=== PATIENT | female | born 1995 | race Two or more races ===

== ENCOUNTER 2016-06-14 04:52 | Emergency (ER) ==
[2016-06-14 05:09] VITALS: BP 103/64; TEMP 98.7; BMI 42.5
[2016-06-14] MEDS ORDERED: BENADRYL IM STA (05:20)
[2016-06-14] MEDS ORDERED: DECADRON 4 MG/ML SDV IM STA (05:20)
--- NOTE | 2016-06-14 05:24 | ED.PDOC ---
General ED Provider: Dr. HUGO ESCALANTE Chief Complaint: Rash Stated Complaint: Been itching and scratching all over, had similar problem before, does not know how it started. Time Seen by Physician: 05:21 Mode of Arrival: Walk-In Information Source: Patient Nursing and Triage Documentation Reviewed and Agree: Yes Skin Complaint Exam - Skin Rash/Itching Complaint/Exam Symptoms Are: Still present Initial Severity: Moderate Current Severity: Moderate Potential Exposures: Reports: Unknown Aggravating: Reports: None Alleviating: Reports: None Associated Signs and Symptoms: Denies: Difficulty breathing, Fever, Chills Related History: Similar episode Skin Findings: Present: Urticaria Differential Diagnoses: Allergic Reaction, Contact Dermatitis Review of Systems - Review Of Systems Constitutional: Reports: No symptoms Eyes: Reports: No symptoms Ears, Nose, Mouth, Throat: Reports: No symptoms Respiratory: Reports: No symptoms Cardiac: Reports: No symptoms GI: Reports: No symptoms : Reports: No symptoms Musculoskeletal: Reports: No symptoms Skin: Reports: Rash Neurological: Reports: No symptoms Endocrine: Reports: No symptoms Hematologic/Lymphatic: Reports: No symptoms All Other Systems: Reviewed and Negative Past Medical History - Past Medical History Previously Healthy: Yes Endocrine: Reports: None Cardiovascular: Reports: None Respiratory: Reports: None Hematological: Reports: None Gastrointestinal: Reports: None Genitourinary: Reports: None Neuro/Psych: Reports: None Musculoskeletal: Reports: None Cancer: Reports: None Last Menstrual Period: 2 weeks ago - Surgical History General Surgical History: Reports: None - Family History Family History: Reports: None - Social History Smoking Status: Current some day smoker, Light tobacco smoker Smoking Cessation Counseling Time: > 3 min - 10 min Hx Substance Use: No Alcohol Screening: Occasionally - Immunizations Tetanus Shot up to Date: No Physical Exam - Physical Exam Appearance: Well-appearing, Obese Eyes: CARLOS, EOMI, Conjunctiva clear ENT: Ears normal, Nose normal, Oropharynx normal Respiratory: Airway patent, Breath sounds clear, Breath sounds equal, Respirations nonlabored Cardiovascular: RRR, Pulses normal, No rub, No murmur GI/: Soft, Nontender, No masses, Bowel sounds normal, No Organomegaly Musculoskeletal: Normal strength, ROM intact, No edema, No calf tenderness Skin: Warm, Dry, Normal color Neurological: Sensation intact, Motor intact, Reflexes intact, Cranial nerves intact, Alert, Oriented Psychiatric: Affect appropriate, Mood appropriate Critical Care Note - Critical Care Note Total Time (mins): 0 Course - Course Orders, Labs, Meds: Orders Category Date Time Status Dexamethasone 4 mg/ml Inj [Decadron 4 mg/ml Sdv] MEDS 06/14/16 05:20 Stat 4 mg IM ONCE STA Diphenhydramine Inj [Benadryl] MEDS 06/14/16 05:20 Stat 50 mg IM ONCE STA Medications Discontinued Medications Generic Name Dose Route Start Last Admin Trade Name Estefania PRN Reason Stop Dose Admin Dexamethasone Sodium Phosphate 4 mg 06/14/16 05:20 Decadron 4 Mg/Ml Sdv IM 06/14/16 05:21 ONCE STA Diphenhydramine HCl 50 mg 06/14/16 05:20 Benadryl IM 06/14/16 05:21 ONCE STA Vital Signs: Temp Pulse Resp BP Pulse Ox 06/14/16 04:58 98.7 F 121 H 20 103/64 98 Departure - Departure Time of Disposition: 05:25 Disposition: HOME SELF-CARE Discharge Problem: Pruritic rash Instructions: Contact Dermatitis (ED) Condition: Stable Pt referred to PMD for follow-up: Yes Additional Instructions: Increase hydration monitor for the allergens. If not better come back Prescriptions: Diphenhydramine HCl [Benadryl] 25 mg PO Q6H #14 capsule Methylprednisolone [Medrol Dosepak] 4 mg PO DIRECTED #1 pkg Allergies/Adverse Reactions: Allergies No Known Allergies Allergy (Unverified 06/14/16 05:07) Home Medications: Ambulatory Orders Diphenhydramine HCl [Benadryl] 25 mg PO Q6H #14 capsule 06/14/16 Methylprednisolone [Medrol Dosepak] 4 mg PO DIRECTED #1 pkg 06/14/16 Disposition Discussed With: Patient
== END 2016-06-14 06:01 | disposition home or self-care (01) ==
LOC: ED 04:52
DX: R21 Rash and other nonspecific skin eruption (principal); L29.9 Pruritus, unspecified; F17.210 Nicotine dependence, cigarettes, uncomplicated
CPT/HCPCS: 96372; 99282

== ENCOUNTER 2016-06-14 22:57 | Emergency (ER) ==
[2016-06-14 23:10] VITALS: BP 120/80; TEMP 97.8; BMI 41.1
[2016-06-14] MEDS ORDERED: BENADRYL IVP STA (23:20)
[2016-06-14] MEDS ORDERED: SOLU-MEDROL 125 MG IVP STA (23:20)
[2016-06-14] MEDS ORDERED: SODIUM CHLORIDE 1,000 ML IV STA (23:20)
[2016-06-14] MEDS ORDERED: PEPCID IVP STA (23:20)
[2016-06-14] MEDS ORDERED: ALLEGRA PO STA (23:21)
[2016-06-14 23:32] LABS: BASOPHILS % (AUTO) 0.1 % (0.0-3.0); HEMATOCRIT 41.1 % (37.0-47.0); HEMOGLOBIN 14.5 g/dl (12.0-16.0); IMMATURE GRANULOCYTE % (AUTO) 0.4 % (0.0-5.0); LYMPHOCYTES # (AUTO) 1.4 K/uL (0.60-3.4); MEAN CORPUSCULAR HEMOGLOBIN 27.9 pg (27.0-31.0); MEAN CORPUSCULAR HGB CONC 35.3 (31.8-35.4); MONOCYTES # (AUTO) 0.5 K/uL (0.4-2.0); MONOCYTES % (AUTO) 1.9 (0-10); NEUTROPHILS # (AUTO) 21.7 K/ul (2.0-6.9); NEUTROPHILS % (AUTO) 91.6; PLATELET COUNT 380 10^3/uL (140-440); WHITE BLOOD COUNT 23.66 K/ul (4.6-10.2)
[2016-06-14 23:42] LABS: SERUM PREGNANCY INTERNAL QC INTERNAL QC VALID
[2016-06-14 23:51] LABS: ALBUMIN 3.6 g/dL (3.4-5.0); ALBUMIN/GLOBULIN RATIO 1.29; ANION GAP 11.9; BILIRUBIN,TOTAL 0.24 mg/dL (0.00-1.20); BUN/CREATININE RATIO 10.81; CALCIUM 9.1 mg/dL (8.2-10.2); CREATININE 0.74 mg/dL (0.60-1.30); POTASSIUM 3.9 mmol/L (3.5-5.10); TOTAL PROTEIN 6.4 g/dL (6.4-8.2)
[2016-06-15 00:05] LABS: ERYTHROCYTE SEDIMENTATION RATE 8 mm/hr (0-20); ESR INTERNAL QC INTERNAL QC VALID
--- NOTE | 2016-06-15 00:28 | ED.PDOC ---
General ED Provider: Dr. JEREMIAH HANSEN-ER Chief Complaint: Rash Stated Complaint: im covered in a rash andits itchy Time Seen by Physician: 23:05 Mode of Arrival: Walk-In Information Source: Patient Exam Limitations: No limitations Nursing and Triage Documentation Reviewed and Agree: Yes Skin Complaint Exam - Skin Rash/Itching Complaint/Exam Onset/Duration: 2 days Symptoms Are: Still present Initial Severity: Moderate Current Severity: Moderate Location: all over Potential Exposures: Reports: Unknown Aggravating: Reports: None Alleviating: Reports: None Associated Signs and Symptoms: Denies: Difficulty breathing, Fever, Chills Related History: Similar episode Skin Findings: Present: Urticaria Differential Diagnoses: Allergic Reaction Review of Systems - Review Of Systems Constitutional: Reports: No symptoms Eyes: Reports: No symptoms Ears, Nose, Mouth, Throat: Reports: No symptoms Respiratory: Reports: No symptoms Cardiac: Reports: No symptoms GI: Reports: No symptoms : Reports: No symptoms Musculoskeletal: Reports: No symptoms Skin: Reports: Rash Neurological: Reports: No symptoms Endocrine: Reports: No symptoms Hematologic/Lymphatic: Reports: No symptoms All Other Systems: Reviewed and Negative Past Medical History - Past Medical History Previously Healthy: Yes Endocrine: Reports: None Cardiovascular: Reports: None Respiratory: Reports: None Hematological: Reports: None Gastrointestinal: Reports: None Genitourinary: Reports: None Neuro/Psych: Reports: None Musculoskeletal: Reports: None Cancer: Reports: None Last Menstrual Period: 2 weeks ago - Surgical History General Surgical History: Reports: None - Family History Family History: Reports: None - Social History Smoking Status: Current some day smoker, Light tobacco smoker Hx Substance Use: No Alcohol Screening: Occasionally Lives: With family - Immunizations Tetanus Shot up to Date: Yes Physical Exam - Physical Exam Appearance: Well-appearing, No pain distress, Well-nourished Eyes: CARLOS, EOMI, Conjunctiva clear ENT: Ears normal, Nose normal, Oropharynx normal Neck: Supple Respiratory: Airway patent, Breath sounds clear, Breath sounds equal, Respirations nonlabored Cardiovascular: RRR, Pulses normal, No rub, No murmur GI/: Soft, Nontender, No masses, Bowel sounds normal, No Organomegaly Musculoskeletal: Normal strength, ROM intact, No edema, No calf tenderness Skin: Warm (noted urticarial rash from head to toe) Neurological: Sensation intact, Motor intact, Reflexes intact, Cranial nerves intact, Alert, Oriented Psychiatric: Affect appropriate, Mood appropriate Re-Evaluation - Re-Evaluation Time of Re-Evaluation: 00:27 Status: Improved (rash has completely resolved) Vital Signs Stable: Yes Pain Level: 0 Appearance: NAD Lungs: Clear Skin: Warm and Dry Neuro: Alert and Oriented X3 CV: RRR Critical Care Note - Critical Care Note Total Time (mins): 0 Course - Course Hematology/Chemistry: 06/14/16 23:31 06/14/16 23:31 Orders, Labs, Meds: Lab Review 06/14/16 23:31 WBC 23.66 H RBC 5.20 Hgb 14.5 Hct 41.1 MCV 79.0 L MCH 27.9 MCHC 35.3 RDW Coeff of Chris 13.4 Plt Count 380 Immature Gran % (Auto) 0.4 Neut % (Auto) 91.6 Lymph % (Auto) 6.0 L [place] % (Auto) 1.9 Eos % (Auto) 0.0 Baso % (Auto) 0.1 Immature Gran # (Auto) 0.1 Neut # 21.7 H Lymph # 1.4 [place] # 0.5 Eos # 0.0 Baso # 0.0 ESR 8 Sodium 135 L Potassium 3.9 Chloride 103 Carbon Dioxide 24 Anion Gap 11.9 BUN 8 Creatinine 0.74 Estimated GFR (MDRD) 99.00 BUN/Creatinine Ratio 10.81 Glucose 143 H Calcium 9.1 Total Bilirubin 0.24 AST 15 ALT 23 Alkaline Phosphatase 63 Total Protein 6.4 Albumin 3.6 Globulin 2.8 Albumin/Globulin Ratio 1.29 Serum , Qual Negative Orders Category Date Time Status ED IV/MEDIPORT/POWERPORT .ONCE EMERGENCY 06/14/16 23:20 Active CBC W/ AUTO DIFF Stat LAB 06/14/16 23:31 Completed COMPREHENSIVE METABOLIC PANEL Stat LAB 06/14/16 23:31 Completed ESR Stat LAB 06/14/16 23:31 Completed SERUM Stat LAB 06/14/16 23:31 Completed 0.9 % Sodium Chloride [Saline Flush] MEDS 06/14/16 23:20 Ordered 1 syr IVF PRN PRN Diphenhydramine Inj [Benadryl] MEDS 06/14/16 23:20 Discontinued 50 mg IVP ONCE STA Famotidine Inj [Pepcid] MEDS 06/14/16 23:20 Discontinued 40 mg IVP ONCE STA Fexofenadine HCl [Angie] MEDS 06/14/16 23:21 Discontinued 180 mg PO ONCE STA Methylprednisolone Sod Succ/Pf [Solu-Medrol 125 mg] MEDS 06/14/16 23:20 Discontinued 125 mg IVP ONCE STA Sodium Chloride 0.9% [Sodium Chloride] 1,000 ml MEDS 06/14/16 23:20 Active IV 100 mls/hr Medications Generic Name Dose Route Start Last Admin Trade Name Freq PRN Reason Stop Dose Admin Sodium Chloride 1,000 mls @ 100 mls/hr 06/14/16 23:20 06/14/16 23:33 Sodium Chloride IV 06/15/16 09:19 100 mls/hr .Q10H STA Administration Sodium Chloride 1 syr 06/14/16 23:20 06/15/16 00:02 Saline Flush IVF 1 syr PRN PRN Administration To flush IV Discontinued Medications Generic Name Dose Route Start Last Admin Trade Name Freq PRN Reason Stop Dose Admin Diphenhydramine HCl 50 mg 06/14/16 23:20 06/15/16 00:01 Benadryl IVP 06/14/16 23:21 50 mg ONCE STA Administration Famotidine 40 mg 06/14/16 23:20 06/15/16 00:02 Pepcid IVP 06/14/16 23:21 40 mg ONCE STA Administration Fexofenadine HCl 180 mg 06/14/16 23:21 06/15/16 00:01 Angie PO 06/14/16 23:22 180 mg ONCE STA Administration Methylprednisolone Sodium Succinate 125 mg 06/14/16 23:20 06/15/16 00:02 Solu-Medrol 125 Mg IVP 06/14/16 23:21 125 mg ONCE STA Administration Vital Signs: Temp Pulse Resp BP Pulse Ox 06/14/16 23:01 97.8 F 107 H 20 120/80 96 Departure - Departure Time of Disposition: 00:27 Disposition: HOME SELF-CARE Discharge Problem: Urticaria Instructions: Urticaria (ED) Condition: Good Pt referred to PMD for follow-up: Yes Additional Instructions: stop medrol --prednisone 40mg x 3 days then 20mg x 3 days then 10mg x 3 daysl== increase benadryl to 50mg q 6hrs ...zyrtec 10mg daily #30...tagamet 400mg bid # 30...--stay in cool enviroment--your white blood count is elevated --its probably due to the steroids but you need to have it repeated in a few days Allergies/Adverse Reactions: Allergies No Known Allergies Allergy (Verified 06/14/16 23:11) Home Medications: Ambulatory Orders Diphenhydramine HCl [Benadryl] 25 mg PO Q6H #14 capsule 06/14/16 Methylprednisolone [Medrol Dosepak] 4 mg PO DIRECTED #1 pkg 06/14/16 Disposition Discussed With: Patient, Family
== END 2016-06-15 00:44 | disposition home or self-care (01) ==
LOC: ED 22:57
DX: L50.9 Urticaria, unspecified (principal); D72.829 Elevated white blood cell count, unspecified; F17.210 Nicotine dependence, cigarettes, uncomplicated; R11.2 Nausea with vomiting, unspecified; R10.9 Unspecified abdominal pain
CPT/HCPCS: 36415; 80053; 81001; 82150; 83690; 84703; 85025; 85651; 87651; 87804; 87880; 96361; 96365; 96372; 96374; 96375; 99282; 99283

== ENCOUNTER 2016-06-15 21:17 | Emergency (ER) ==
[2016-06-15 21:17] VITALS: BMI 41.1
[2016-06-15] MEDS ORDERED: SODIUM CHLORIDE 1,000 ML IV STA (21:22)
[2016-06-15] MEDS ORDERED: PHENERGAN 25 MG/ML VIAL 25 MG in SODIUM CHLORIDE 50 ML IV STA (21:23)
[2016-06-15] MEDS ORDERED: BENADRYL IVP STA (21:23)
[2016-06-15] MEDS ORDERED: PEPCID IVP STA (21:24)
[2016-06-15 21:26] VITALS: BP 137/88; TEMP 99
[2016-06-15 21:40] LABS: BASOPHILS % (AUTO) 0.1 % (0.0-3.0); HEMATOCRIT 37.2 % (37.0-47.0); HEMOGLOBIN 12.6 g/dl (12.0-16.0); IMMATURE GRANULOCYTE % (AUTO) 0.7 % (0.0-5.0); LYMPHOCYTES # (AUTO) 1.9 K/uL (0.60-3.4); LYMPHOCYTES % (AUTO) 7.4 (10.0-50.0); MEAN CORPUSCULAR HEMOGLOBIN 27.3 pg (27.0-31.0); MEAN CORPUSCULAR HGB CONC 33.9 (31.8-35.4); MEAN CORPUSCULAR VOLUME 80.7 fl (81.0-99.0); MONOCYTES # (AUTO) 1.5 K/uL (0.4-2.0); MONOCYTES % (AUTO) 5.7 (0-10); NEUTROPHILS # (AUTO) 21.8 K/ul (2.0-6.9); NEUTROPHILS % (AUTO) 86.1; PLATELET COUNT 317 10^3/uL (140-440); RED BLOOD COUNT 4.61 10^6/ul (4.20-5.40); WHITE BLOOD COUNT 25.31 K/ul (4.6-10.2)
[2016-06-15] MEDS ORDERED: PHENERGAN 25 MG/ML VIAL ONE (21:51)
[2016-06-15 21:55] LABS: SERUM PREGNANCY INTERNAL QC INTERNAL QC VALID
[2016-06-15 22:00] LABS: FLU INTERNAL QC INTERNAL QC VALID; RAPID FLU A NEGATIVE (NEGATIVE); RAPID FLU B NEGATIVE (NEGATIVE)
[2016-06-15 22:03] LABS: ALANINE AMINOTRANSFERASE 21 U/L (12-78); ALBUMIN 3.8 g/dL (3.4-5.0); ALBUMIN/GLOBULIN RATIO 1.23; ALKALINE PHOSPHATASE 56 U/L (42-98); AMYLASE 43 U/L (25-115); ANION GAP 14.8; ASPARTATE AMINO TRANSFERASE 16 U/L (15-37); BILIRUBIN,TOTAL 0.21 mg/dL (0.00-1.20); BLOOD UREA NITROGEN 7 mg/dL (7-18); BUN/CREATININE RATIO 8.86; CARBON DIOXIDE 24 mmol/L (21-32); CHLORIDE 103 mmol/L (98-107); CREATININE 0.79 mg/dL (0.60-1.30); GLUCOSE 93 mg/dL (70-110); POTASSIUM 3.8 mmol/L (3.5-5.10); SODIUM 138 mmol/L (136-145); TOTAL PROTEIN 6.9 g/dL (6.4-8.2)
[2016-06-15 22:39] LABS: BILIRUBIN,URINE Negative (NEGATIVE); KETONES,URINE Negative (NEGATIVE); LEUKOCYTE ESTERASE ,URINE Trace (NEGATIVE); NITRITE,URINE Negative (NEGATIVE); PROTEIN,URINE 1+ (NEGATIVE); URINE, BLOOD Negative (NEGATIVE)
[2016-06-15 22:47] LABS: ADD URINE MICROSCOPIC YES
[2016-06-15 22:48] LABS: BACTERIA,URINE 1+ (NOT PRESENT)
--- NOTE | 2016-06-15 22:56 | CT ---
EXAM: CT abdomen pelvis without intravenous contrast 06/15/2016. Sagittal and coronal reformatted images obtained HISTORY: Vomiting COMPARISON: None. FINDINGS: The liver, gallbladder, adrenal glands, kidneys, spleen and pancreas show no acute abnorm ality. There is no bowel obstruction. Normal appendix. Unremarkable decompressed urinary bladder. No tootie e air or free fluid. No acute osseous abnormality. IMPRESSION: 1. No urinary or bowel obstruction and normal appendix 2. No acute inflammatory process identified within the limitation of a noncontrast enhanced examina tion.
--- NOTE | 2016-06-15 23:20 | ED.PDOC ---
General ED Provider: Dr. JEREMIAH HANSEN-ER Chief Complaint: Nausea/Vomiting Stated Complaint: i had some vomiting today--still nauseated Time Seen by Physician: 23:15 Mode of Arrival: Walk-In Information Source: Patient, Family Exam Limitations: No limitations Nursing and Triage Documentation Reviewed and Agree: Yes GI Complaint Exam - Vomiting/Diarrhea Complaint/Exam Onset/Duration: several hours Symptoms Are: Still present Episodes of Vomiting over last 24 Hours: 4 Episodes of Diarrhea Over Last 24 Hours: 0 Initial Severity: Mild Current Severity: Mild Character of Vomiting: Reports: Non-bilious Aggravating: Reports: None Alleviating: Reports: None Associated Signs and Symptoms: Reports: Abdominal pain, Cramping Related History: Reports: Similar episode Recent Positive Test: No Use of Oral Contraceptives: No Use of Depoprovera: No Compliant With Contraceptive Use: No Non-GI Risk Factors: Reports: None Surgical Obstruction Risk Factors: Reports: None Related Surgical History: Reports: None Abdominal Findings: Present: None Kussmaul Respirations Present: No Differential Diagnoses: Dehydration, UTI Review of Systems - Review Of Systems Constitutional: Reports: No symptoms Eyes: Reports: No symptoms Ears, Nose, Mouth, Throat: Reports: No symptoms Respiratory: Reports: No symptoms Cardiac: Reports: No symptoms GI: Reports: Nausea, Vomiting : Reports: No symptoms Musculoskeletal: Reports: No symptoms Skin: Reports: No symptoms Neurological: Reports: No symptoms Endocrine: Reports: No symptoms Hematologic/Lymphatic: Reports: No symptoms All Other Systems: Reviewed and Negative Past Medical History - Past Medical History Previously Healthy: Yes Endocrine: Reports: None Cardiovascular: Reports: None Respiratory: Reports: None Hematological: Reports: None Gastrointestinal: Reports: None Genitourinary: Reports: None Neuro/Psych: Reports: None Musculoskeletal: Reports: None Cancer: Reports: None Last Menstrual Period: 2 weeks ago - Surgical History General Surgical History: Reports: None - Family History Family History: Reports: None - Social History Smoking Status: Current some day smoker, Light tobacco smoker Hx Substance Use: No Alcohol Screening: Occasionally - Immunizations Tetanus Shot up to Date: Yes Physical Exam - Physical Exam Appearance: Well-appearing, No pain distress, Well-nourished Eyes: CARLOS, EOMI, Conjunctiva clear ENT: Ears normal, Nose normal, Oropharynx normal Neck: Supple Respiratory: Airway patent, Breath sounds clear, Breath sounds equal, Respirations nonlabored Cardiovascular: RRR, Pulses normal, No rub, No murmur GI/: Soft, Nontender, No masses, Bowel sounds normal, No Organomegaly Musculoskeletal: Normal strength, ROM intact, No edema, No calf tenderness Skin: Warm Neurological: Sensation intact Psychiatric: Affect appropriate, Mood appropriate Interpretation - Radiology Interpretation Radiology Interpretation By: Radiologist Radiology Results: Negative Exam Interpreted: CT Scan Re-Evaluation - Re-Evaluation Time of Re-Evaluation: 23:22 Status: Improved Vital Signs Stable: Yes Pain Level: 0 Appearance: NAD Lungs: Clear Skin: Warm and Dry Neuro: Alert and Oriented X3 CV: RRR Critical Care Note - Critical Care Note Total Time (mins): 0 Course - Course Hematology/Chemistry: 06/15/16 21:30 06/15/16 21:30 Orders, Labs, Meds: Lab Review 06/15/16 06/15/16 21:30 21:35 WBC 25.31 H RBC 4.61 Hgb 12.6 Hct 37.2 MCV 80.7 L MCH 27.3 MCHC 33.9 RDW Coeff of Chris 13.7 Plt Count 317 Immature Gran % (Auto) 0.7 Neut % (Auto) 86.1 Lymph % (Auto) 7.4 L [place] % (Auto) 5.7 Eos % (Auto) 0.0 Baso % (Auto) 0.1 Immature Gran # (Auto) 0.2 Neut # 21.8 H Lymph # 1.9 [place] # 1.5 Eos # 0.0 Baso # 0.0 Sodium 138 Potassium 3.8 Chloride 103 Carbon Dioxide 24 Anion Gap 14.8 BUN 7 Creatinine 0.79 Estimated GFR (MDRD) 92.00 BUN/Creatinine Ratio 8.86 Glucose 93 D Calcium 9.0 Total Bilirubin 0.21 AST 16 ALT 21 Alkaline Phosphatase 56 Total Protein 6.9 Albumin 3.8 Globulin 3.1 Albumin/Globulin Ratio 1.23 Amylase 43 Lipase Pending Serum , Qual Negative Urine Color Other Urine Clarity Slightly Urine pH 6.0 Ur Specific [place] >=1.030 Urine Protein 1+ Urine Glucose (UA) Negative Urine Ketones Negative Urine Blood Negative Urine Nitrite Negative Urine Bilirubin Negative Urine Urobilinogen 0.2 Ur Leukocyte Esterase Trace Urine Microscopic WBC 0-2 Ur Squamous Epith Cells Tntc Amorphous Sediment 2+ Urine Bacteria 1+ Influenza A (Rapid) Negative Influenza B (Rapid) Negative Orders Category Date Time Status ED IV/MEDIPORT/POWERPORT .ONCE EMERGENCY 06/15/16 21:22 Active AMYLASE Stat LAB 06/15/16 21:30 Results CBC W/ AUTO DIFF Stat LAB 06/15/16 21:30 Completed COMPREHENSIVE METABOLIC PANEL Stat LAB 06/15/16 21:30 Results LIPASE Stat LAB 06/15/16 21:30 Results MOLECULAR GROUP A STREP Stat LAB 06/15/16 21:30 Results RAPID FLU A/B Stat LAB 06/15/16 21:30 Completed SERUM Stat LAB 06/15/16 21:30 Completed STREP SCREEN Stat LAB 06/15/16 21:30 Results URINALYSIS C & S IF INDICATED Stat LAB 06/15/16 21:35 Completed 0.9 % Sodium Chloride [Saline Flush] MEDS 06/15/16 21:22 Ordered 1 syr IVF PRN PRN Diphenhydramine Inj [Benadryl] MEDS 06/15/16 21:23 Discontinued 50 mg IVP ONCE STA Famotidine Inj [Pepcid] MEDS 06/15/16 21:24 Discontinued 40 mg IVP ONCE STA Promethazine HCl [Phenergan 25 mg/ml Vial] MEDS 06/15/16 21:51 Discontinued 25 mg .ROUTE .STK-MED ONE Promethazine HCl [Phenergan 25 mg/ml Vial] 25 mg MEDS 06/15/16 21:23 Discontinued 0.9 % Sodium Chloride [Sodium Chloride] 50 ml IV ONCE Sodium Chloride 0.9% [Sodium Chloride] 1,000 ml MEDS 06/15/16 21:22 Active IV 100 mls/hr CT ABDOMEN/PELVIS WO CONTRAST Stat RADS 06/15/16 21:23 Completed Medications Generic Name Dose Route Start Last Admin Trade Name Freq PRN Reason Stop Dose Admin Sodium Chloride 1,000 mls @ 100 mls/hr 06/15/16 21:22 06/15/16 21:54 Sodium Chloride IV 06/16/16 07:21 100 mls/hr .Q10H STA Administration Sodium Chloride 1 syr 06/15/16 21:22 06/15/16 21:59 Saline Flush IVF 1 syr PRN PRN Administration To flush IV Discontinued Medications Generic Name Dose Route Start Last Admin Trade Name Freq PRN Reason Stop Dose Admin Diphenhydramine HCl 50 mg 06/15/16 21:23 06/15/16 21:56 Benadryl IVP 06/15/16 21:24 50 mg ONCE STA Administration Famotidine 40 mg 06/15/16 21:24 06/15/16 21:59 Pepcid IVP 06/15/16 21:25 40 mg ONCE STA Administration Promethazine HCl 25 mg/ Sodium 51 mls @ 75 mls/hr 06/15/16 21:23 06/15/16 22: 05 Chloride IV 06/15/16 22:03 75 mls/hr ONCE STA Administration Vital Signs: Temp Pulse Resp BP Pulse Ox 06/15/16 21:21 99 F 111 H 20 137/88 95 Departure - Departure Time of Disposition: 23:22 Disposition: HOME SELF-CARE Discharge Problem: Vomiting, Urticaria Instructions: Urticaria (ED) Condition: Good Pt referred to PMD for follow-up: Yes Additional Instructions: continue tagament and prn benadrylk --stop steroids and zyrtec--start suni 180mg bid #30--come to the clinic to have the white blood count repeated Allergies/Adverse Reactions: Allergies No Known Allergies Allergy (Verified 06/15/16 21:26) Home Medications: Ambulatory Orders Diphenhydramine HCl [Benadryl] 25 mg PO Q6H #14 capsule 06/14/16 Cetirizine HCl 10 mg PO DAILY 06/15/16 Cimetidine [Tagamet] 400 mg PO BIDAC 06/15/16 Prednisone 10 mg PO DIRECTED 06/15/16 Disposition Discussed With: Patient, Family
[2016-06-15 23:25] LABS: LIPASE < 4 U/L (8-78)
== END 2016-06-15 23:37 | disposition home or self-care (01) ==
LOC: ED 21:17
DX: R11.2 Nausea with vomiting, unspecified (principal); R10.9 Unspecified abdominal pain; L50.9 Urticaria, unspecified; F17.210 Nicotine dependence, cigarettes, uncomplicated
CPT/HCPCS: 36415; 80053; 81001; 82150; 83690; 84703; 85025; 87804; 87880; 96361; 96365; 96375; 99283